=== PATIENT | female | born 1955 | race Caucasian/White ===

== ENCOUNTER → 2020-02-04 | Outpatient (REF) | payer MEDICARE ==
[2020-02-04 18:57] LABS: APPEARANCE, URINE HAZY (CLEAR); BACTERIA, URINE AUTO 1+ (NEGATIVE); BILIRUBIN, URINE AUTO NEGATIVE (NEGATIVE); BLOOD, URINE BLOOD NEGATIVE (NEGATIVE); COLOR, URINE YELLOW (YELLOW); GLUCOSE, URINE (UA) AUTO NEGATIVE (NEGATIVE); KETONE, URINE AUTO NEGATIVE (NEGATIVE); LEUKOCYTE ESTERASE, URINE AUTO 3+ (NEGATIVE); MUCUS, URINE SMALL (NEGATIVE); NITRITE, URINE AUTO NEGATIVE (NEGATIVE); PROTEIN, URINE AUTO NEGATIVE (NEGATIVE); RBC, URINE AUTO 4 /HPF (0-3); SPECIFIC GRAVITY URINE AUTO 1.019 (1.002-1.035); SQUAMOUS EPITHELIAL CELL UR AU 1 /HPF (0-6); UROBILINOGEN, URINE AUTO 0.2 mg/dL (0.0-2.0); WBC, URINE AUTO 150 /HPF (0-3)
== END ==
LOC: M SMT 16:46
PROVIDERS: ATTEND Nurse Practitioner Women's Health
DX: N39.0 Urinary tract infection, site not specified (principal)

== ENCOUNTER 2020-03-31 07:30 | Day surgery (SDC) | payer MEDICARE ==
[~2020-03-31 07:30] MED LIST: LIDOCAINE 2% 100MG/5ML SDV (FOR ANES.) As Ordered ONE; MIDAZOLAM INJ 2MG/2ML VIAL (J2250 PER 1MG) As Ordered ONE; ceFAZolin 1GM VIAL (J0690 PER 500MG) As Ordered ONE; fentaNYL 100 MCG/2 ML INJECTION (J3010) As Ordered ONE; propofoL 200 MG/20 ML VIAL As Ordered ONE
[2020-03-31] MEDS ORDERED: ONDANSETRON 4MG/2ML VIAL As Ordered ONE ×2 (08:06→11:07)
[2020-03-31] MEDS ORDERED: dexameTHASONE 4 MG/ML 1ML VIAL (J1100 PER 1MG) As Ordered ONE (11:07)
[2020-03-31] MEDS ORDERED: propofoL 200 MG/20 ML VIAL As Ordered ONE (11:07)
[2020-03-31] MEDS ORDERED: fentaNYL 100 MCG/2 ML INJECTION (J3010) As Ordered ONE (11:08)
[2020-03-31] MEDS ORDERED: BUPIVACAINE HCL 0.25% 10ML VIAL As Ordered ONE (11:35)
[2020-03-31] MEDS ORDERED: LIDOCAINE W/EPINEPHRINE 1% 20ML VIAL As Ordered ONE (11:35)
[2020-03-31] MEDS ORDERED: ACETAMINOPHEN 120 MG SUPP As Ordered ONE (11:41)
[2020-03-31] MEDS ORDERED: IBUPROFEN 100 MG/5 ML SUSP UDC DYE FREE As Ordered ONE (12:50)
--- NOTE | 2020-05-05 15:35 | ECGEPIP ---
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
--- NOTE | 2020-05-12 11:48 | REP ---
HISTORY: Unavailable. FINDINGS: There are clips in the right upper quadrant of the abdomen and in the left mid abdomen and in the left mid abdomen. Some vascular calcifications are noted in the aorta and iliac vessels. The bowel gas pattern is normal. There is a 9 mm calcification projecting over the right mid-kidney consistent with an intrarenal calculus. There are phleboliths in the pelvis. IMPRESSION: Intrarenal nephrolithiasis, right kidney, MTDD
--- NOTE | 2020-05-26 10:15 | RO ---
DATE OF OPERATION: March 30, 2020 PRE-PROCEDURE DIAGNOSIS: Right kidney stone. POST-PROCEDURE DIAGNOSIS: Right kidney stone. PROCEDURES: Right extracorporeal shock wave lithotripsy. SURGEON: Young Quintana MD. COMMERCIAL PLUMBER: None. ANESTHESIA: MAC. OPERATIVE INDICATIONS: This is a 65-year-old female who was brought to the operating room for treatment of a 7-mm nonobstructing right kidney stone. DESCRIPTION OF PROCEDURE: The patient was brought to the operating room and MAC anesthesia was administered. Prophylactic antibiotics were infused. She was then placed in the supine position in preparation for a right-sided extracorporeal shock wave lithotripsy. Fluoroscopy was utilized to monitor the stone position and fragmentation of the procedure. Shock waves were then delivered to the right-sided kidney stone ungated. There were no arrhythmias. The stone did appear to fragment well. After 2500 shocks, the procedure was concluded. The patient was then awakened from anesthesia and transferred to the recovery room in stable condition. ESTIMATED BLOOD LOSS: 0 mL. COMPLICATIONS: None. SPECIMEN: None. PLAN: The patient will follow up in the urology clinic in approximately 3-4 weeks with imaging prior to assess for residual stone burden. RUDY
== END 2020-03-31 09:45 | disposition home or self-care (01) ==
LOC: M SDC 07:30
PROVIDERS: ATTEND Urology
DX: N20.0 Calculus of kidney (principal); J44.9 Chronic obstructive pulmonary disease, unspecified; F32.9 Major depressive disorder, single episode, unspecified; I10 Essential (primary) hypertension; E78.5 Hyperlipidemia, unspecified; Z79.899 Other long term (current) drug therapy; Z87.891 Personal history of nicotine dependence
CPT/HCPCS: 50590; 74018; 93005; J0690; J1100; J2250; J2405; J3010

== ENCOUNTER → 2020-05-02 | Outpatient (REF) | payer MEDICARE ==
[2020-05-11 18:07] LABS: CA Oxalate Dihy 10 % (.); Ca Ox Monohydrate 60 % (.)
== END ==
LOC: M SMT 13:24
PROVIDERS: ATTEND Nurse Practitioner Women's Health
DX: N20.0 Calculus of kidney (principal)

== ENCOUNTER 2021-08-30 09:01 | Day surgery (SDC) | payer MEDICARE ==
[~2021-08-30] VITALS: Ht 170.2 cm; Wt 90.4 kg
[~2021-08-30 09:01] MED LIST changes: +ALBUTEROL SULFATE 2.5 MG/0.5 ML INH NEB SOLN INH ONE; +D31000TA2 PO; -LIDOCAINE 2% 100MG/5ML SDV (FOR ANES.) As Ordered ONE; +LIDOCAINE 4% INJ 5ML AMP INH ONE; +LISI20TA35 PO; +LR 1,000 ML IV ONE; +METH10TA PO; -MIDAZOLAM INJ 2MG/2ML VIAL (J2250 PER 1MG) As Ordered ONE; +PARO5TAB PO; +PROP60CA PO; +SPIR12.9 INH; -ceFAZolin 1GM VIAL (J0690 PER 500MG) As Ordered ONE; -fentaNYL 100 MCG/2 ML INJECTION (J3010) As Ordered ONE; -propofoL 200 MG/20 ML VIAL As Ordered ONE
[2021-08-30] MEDS ORDERED: fentaNYL 100 MCG/2 ML INJECTION (J3010) As Ordered ONE (10:22)
[2021-08-30] MEDS ORDERED: MIDAZOLAM INJ 2MG/2ML VIAL (J2250 PER 1MG) As Ordered ONE (10:22)
[2021-08-30] MEDS ORDERED: ROCURONIUM BROMIDE 50 MG/5 ML VIAL As Ordered ONE (10:24)
[2021-08-30] MEDS ORDERED: propofoL 200 MG/20 ML VIAL As Ordered ONE (10:24)
[2021-08-30] MEDS ORDERED: ONDANSETRON 4MG/2ML VIAL As Ordered ONE (10:25)
[2021-08-30] MEDS ORDERED: dexameTHASONE 4 MG/ML 1ML VIAL (J1100 PER 1MG) As Ordered ONE (10:25)
[2021-08-30] MEDS ORDERED: LIDOCAINE 2% 100MG/5ML SDV (FOR ANES.) As Ordered ONE (10:25)
[2021-08-30] MEDS ORDERED: LIDOCAINE 1% SDV 30ML VIAL As Ordered ONE (11:19)
[2021-08-30] MEDS ORDERED: THROMBIN SOLN 5,000 UNITS VIAL As Ordered ONE (11:20)
[2021-08-30] MEDS ORDERED: CETACAINE SPRAY 5GM As Ordered ONE (11:20)
[2021-08-30] MEDS ORDERED: EPINEPHrine 1MG/10ML SYRINGE 1.5IN As Ordered ONE (11:20)
[2021-08-30] MEDS ORDERED: SUGAMMADEX SODIUM 500 MG/5 ML VIAL (BRIDION) As Ordered ONE (12:07)
[2021-08-30] MEDS ORDERED: ePHEDrine SULFATE 25 MG/5 ML(5MG/ML) SYRINGE As Ordered ONE (12:13)
[2021-08-30] MEDS ORDERED: METOCLOPRAMIDE INJ 10MG/2ML VIAL (J2765 PER 1) As Ordered ONE (13:39)
[2021-08-30 13:45] VITALS: BP 157/70
[2021-08-30] MEDS ORDERED: ONDANSETRON 4MG/2ML VIAL IV PRN (14:00)
[2021-08-30] MEDS ORDERED: LR 1,000 ML IV SCH (14:00)
[2021-08-30] MEDS ORDERED: fentaNYL 100 MCG/2 ML INJECTION (J3010) IV PRN (14:00)
[2021-08-30] MEDS ORDERED: METOCLOPRAMIDE INJ 10MG/2ML VIAL (J2765 PER 1) IV PRN (14:00)
[2021-08-30] MEDS ORDERED: ACETAMINOPHEN TAB 650MG DOSE (2X325MG) PO PRN (14:00)
== END 2021-08-30 14:25 | disposition home or self-care (01) ==
LOC: M SDC 09:01
PROVIDERS: ATTEND Internal Medicine Pulmonary Disease
DX: C7A.090 Malignant carcinoid tumor of the bronchus and lung (principal); C77.1 Secondary and unspecified malignant neoplasm of intrathoracic lymph nodes; I10 Essential (primary) hypertension; E78.5 Hyperlipidemia, unspecified; K44.9 Diaphragmatic hernia without obstruction or gangrene; E05.80 Other thyrotoxicosis without thyrotoxic crisis or storm; J44.9 Chronic obstructive pulmonary disease, unspecified; Z87.891 Personal history of nicotine dependence; F41.9 Anxiety disorder, unspecified; F32.9 Major depressive disorder, single episode, unspecified; M79.7 Fibromyalgia; Z91.041 Radiographic dye allergy status; Z88.8 Allergy status to other drugs, medicaments and biological substances; Z79.899 Other long term (current) drug therapy
CPT/HCPCS: 31626; 31627; 31628; 31629; 31654; 71045; 76000; 88173; 88305; A4648; J1100; J2250; J2405; J2765; J3010; S2900

== ENCOUNTER → 2021-09-19 | Outpatient (CLI) | payer MEDICARE ==
[~2021-09-19] MED LIST changes: -ALBUTEROL SULFATE 2.5 MG/0.5 ML INH NEB SOLN INH ONE; -LIDOCAINE 4% INJ 5ML AMP INH ONE; +LORA1TAB4 PO; -LR 1,000 ML IV ONE; +OLAN1TAB16 PO
== END ==
LOC: M PLARAD 08:52
PROVIDERS: ATTEND Internal Medicine Pulmonary Disease
DX: C34.11 Malignant neoplasm of upper lobe, right bronchus or lung (principal); I65.23 Occlusion and stenosis of bilateral carotid arteries; I70.0 Atherosclerosis of aorta; I25.10 Atherosclerotic heart disease of native coronary artery without angina pectoris; R59.0 Localized enlarged lymph nodes; E07.9 Disorder of thyroid, unspecified
CPT/HCPCS: 78815; A9552

== ENCOUNTER → 2021-09-20 | Outpatient (CLI) | payer MEDICARE ==
[~2021-09-20] MED LIST changes: +ASPI81CH33 PO; -D31000TA2 PO; +DEXA4TA PO; +ECOT81TA5 PO; +LASI20TA3 PO; +MAGN400C PO; +METH25TAB PO; +ONDA-84 PO; +PANT40TA29 PO; +POTA1TAB14 PO; +PROC10TA5 PO; +SIMV20TA22; +VITA100093 PO; +[UNRECOGNIZED DRUG - OTHER]
== END ==
LOC: M ONCR 10:36
PROVIDERS: ATTEND General Practice
DX: C34.11 Malignant neoplasm of upper lobe, right bronchus or lung (principal); Z87.891 Personal history of nicotine dependence; Z86.16 Personal history of COVID-19; Z91.041 Radiographic dye allergy status; Z79.899 Other long term (current) drug therapy

== ENCOUNTER → 2021-10-02 | Outpatient (CLI) | payer MEDICARE ==
[~2021-10-02] MED LIST changes: -ASPI81CH33 PO; -DEXA4TA PO; -ECOT81TA5 PO; -LASI20TA3 PO; -MAGN400C PO; -PANT40TA29 PO; -POTA1TAB14 PO; -SIMV20TA22; -[UNRECOGNIZED DRUG - OTHER]
== END ==
LOC: M ONCR 10:05
PROVIDERS: ATTEND General Practice
DX: C34.11 Malignant neoplasm of upper lobe, right bronchus or lung (principal); C77.1 Secondary and unspecified malignant neoplasm of intrathoracic lymph nodes

== ENCOUNTER → 2021-11-16 | Outpatient (RCR) | payer MEDICARE ==
[2021-10-23 15:00] VITALS: BP 118/72
[2021-10-23 15:08] VITALS: BP 124/78
[~2021-11-16] MED LIST changes: +ASPI81CH33 PO; +DEXA4TA PO; +ECOT81TA5 PO; +LASI20TA3 PO; +LORazepam 2 MG/ML VIAL IVP ONE; +MAGN400C PO; +POTA1TAB14 PO; +SIMV20TA22; +SODIUM CHLORIDE 0.9% INJ 10 ML SYR IV PRN; +[UNRECOGNIZED DRUG - OTHER]
== END ==
LOC: M ONCR 10-23 10:46
PROVIDERS: ATTEND General Practice
DX: C34.11 Malignant neoplasm of upper lobe, right bronchus or lung (principal)
CPT/HCPCS: 77293; 77300; 77301; 77334; 77336; 77338; 77386; 77470; J2060

== ENCOUNTER 2021-12-15 13:44 | Outpatient (RCR) | payer MEDICARE ==
[2021-10-23 15:08] VITALS: BP 124/78
[~2021-12-15 13:44] MED LIST changes: -LORazepam 2 MG/ML VIAL IVP ONE; +PANT40TA29 PO; -SODIUM CHLORIDE 0.9% INJ 10 ML SYR IV PRN
== END 2021-12-16 ==
LOC: M ONCR 13:44
PROVIDERS: ATTEND General Practice
DX: C34.11 Malignant neoplasm of upper lobe, right bronchus or lung (principal)

== ENCOUNTER 2022-01-10 13:28 | Outpatient (RCR) | payer MEDICARE ==
[2021-10-23 15:08] VITALS: BP 124/78
== END 2022-01-16 ==
LOC: M ONCR 13:28
PROVIDERS: ATTEND General Practice
DX: C34.11 Malignant neoplasm of upper lobe, right bronchus or lung (principal)

== ENCOUNTER 2022-01-23 09:14 | Outpatient (CLI) | payer MEDICARE ==
[2022-01-23] MEDS ORDERED: PROHANCE 279.3MG/ML 15ML VIAL As Ordered ONE (10:05)
[2022-01-23] MEDS ORDERED: PROHANCE 279.3MG/ML 5ML VIAL As Ordered ONE (10:06)
[2022-01-23 10:32] LABS: ALBUMIN 3.5 GM/DL (3.2-5.2); ALT/SGPT 25 U/L (12-78); BILIRUBIN,TOTAL 0.5 MG/DL (0.2-1.0); BLOOD UREA NITROGEN 20 MG/DL (7-18); CALCIUM LEVEL 9.3 MG/DL (8.8-10.2); CARBON DIOXIDE LEVEL 31 MEQ/L (21-32); CHLORIDE LEVEL 106 MEQ/L (98-107); CREATININE FOR GFR 0.86 MG/DL (0.55-1.30); GLOMERULAR FILTRATION RATE > 60.0 (>45); GLUCOSE, FASTING 128 MG/DL (70-100); POTASSIUM SERUM 4.1 MEQ/L (3.5-5.1); SODIUM LEVEL 139 MEQ/L (136-145); TOTAL PROTEIN 7.4 GM/DL (6.4-8.2)
[2022-01-23] MEDS ORDERED: POTA1TAB14 PO (11:19)
[2022-01-23] MEDS ORDERED: FURO20TA2 PO (11:19)
[2022-01-23 12:00] VITALS: BP 162/90
== END 2022-01-23 12:03 | disposition home or self-care (01) ==
LOC: M LAB 09:14
PROVIDERS: ATTEND General Practice
DX: C34.11 Malignant neoplasm of upper lobe, right bronchus or lung (principal); R90.82 White matter disease, unspecified; I63.81 Other cerebral infarction due to occlusion or stenosis of small artery
CPT/HCPCS: 36415; 70553; 80053; A9576

== ENCOUNTER → 2022-01-26 | Outpatient (CLI) | payer MEDICARE ==
[~2022-01-26] MED LIST changes: +FURO20TA2 PO; +MEMA10TA19 PO; +MEMA1TAB3 PO
== END ==
LOC: M ONCR 13:26
PROVIDERS: ATTEND General Practice
DX: C34.11 Malignant neoplasm of upper lobe, right bronchus or lung (principal); I25.2 Old myocardial infarction; F40.240 Claustrophobia; R53.83 Other fatigue; Z79.82 Long term (current) use of aspirin; Z79.899 Other long term (current) drug therapy; Z86.19 Personal history of other infectious and parasitic diseases; Z87.891 Personal history of nicotine dependence; Z88.8 Allergy status to other drugs, medicaments and biological substances; Z92.21 Personal history of antineoplastic chemotherapy; Z92.3 Personal history of irradiation

== ENCOUNTER 2022-02-07 09:19 | Outpatient (RCR) | payer MEDICARE ==
[2022-02-12] MEDS ORDERED: CLON0.5T17 PO (19:11)
[2022-02-12] MEDS ORDERED: CLON0.5T2 PO (19:11)
== END 2022-02-15 ==
LOC: M ONCR 09:19
PROVIDERS: ATTEND General Practice
DX: Z51.0 Encounter for antineoplastic radiation therapy (principal); C34.11 Malignant neoplasm of upper lobe, right bronchus or lung; J44.9 Chronic obstructive pulmonary disease, unspecified; I10 Essential (primary) hypertension; E78.5 Hyperlipidemia, unspecified; E05.00 Thyrotoxicosis with diffuse goiter without thyrotoxic crisis or storm; M79.7 Fibromyalgia; F32.A Depression, unspecified; F40.240 Claustrophobia; Z79.899 Other long term (current) drug therapy; Z79.82 Long term (current) use of aspirin; Z88.8 Allergy status to other drugs, medicaments and biological substances; Z87.891 Personal history of nicotine dependence; Z87.19 Personal history of other diseases of the digestive system; Z82.49 Family history of ischemic heart disease and other diseases of the circulatory system; Z80.9 Family history of malignant neoplasm, unspecified

== ENCOUNTER → 2022-03-05 | Outpatient (CLI) | payer MEDICARE ==
[~2022-03-05] MED LIST changes: +CLON0.5T17 PO; +CLON0.5T2 PO; +DEXA2TA PO
== END ==
LOC: M PLARAD 11:53
PROVIDERS: ATTEND Internal Medicine Medical Oncology
DX: C34.2 Malignant neoplasm of middle lobe, bronchus or lung (principal); I65.23 Occlusion and stenosis of bilateral carotid arteries; I70.0 Atherosclerosis of aorta; I25.10 Atherosclerotic heart disease of native coronary artery without angina pectoris; K44.9 Diaphragmatic hernia without obstruction or gangrene; Z90.49 Acquired absence of other specified parts of digestive tract; D35.02 Benign neoplasm of left adrenal gland; J98.4 Other disorders of lung
CPT/HCPCS: 78815; A9552

== ENCOUNTER 2022-03-06 14:18 | Outpatient (RCR) | payer MEDICARE | END 2022-03-18 | LOC: M ONCR 14:18 | PROVIDERS: ATTEND General Practice | DX: Z51.0 Encounter for antineoplastic radiation therapy (principal); C34.11 Malignant neoplasm of upper lobe, right bronchus or lung ==

== ENCOUNTER → 2022-05-03 | Outpatient (CLI) | payer MEDICARE ==
[~2022-05-03] MED LIST changes: +ISOVUE-300 61% 50ML VIAL As Ordered ONE; -SIMV20TA22; +SIMV20TA22 PO
== END ==
LOC: M RAD 14:31
PROVIDERS: ATTEND Nurse Practitioner
DX: C34.2 Malignant neoplasm of middle lobe, bronchus or lung (principal); R51.9 Headache, unspecified

== ENCOUNTER 2022-05-06 16:19 | Inpatient (IN) | payer MEDICARE ==
[~2022-05-06] VITALS: Ht 170.2 cm; Wt 90.3 kg
[~2022-05-06 16:19] MED LIST changes: -ISOVUE-300 61% 50ML VIAL As Ordered ONE
[2022-05-06] MEDS ORDERED: LORazepam 0.5 MG TAB PO ONE (16:55)
[2022-05-06 17:22] LABS: BASO % 0.1 % (0.0-1.0); EOS # 0.1 10^3/uL (0.0-0.5); EOS % 1.9 % (0.0-3.0); HEMATOCRIT 38.4 % (36.0-47.0); HEMOGLOBIN 12.8 g/dl (12.0-15.5); LYMPH # 0.5 10^3/uL (1.5-5.0); MEAN CORPUSCULAR HEMOGLOBIN 30.8 pg (27.0-33.0); MEAN CORPUSCULAR HGB CONC 33.3 g/dl (32.0-36.5); MEAN CORPUSCULAR VOLUME 92.3 fl (80.0-96.0); MONO # 0.7 10^3/uL (0.0-0.8); MONO % 9.9 % (2.0-8.0); NEUTROPHILS # 5.6 10^3/uL (1.5-8.5); NEUTROPHILS % 80.8 % (36.0-66.0); PLATELET COUNT, AUTOMATED 232 10^3/uL (150-450); RED BLOOD COUNT 4.16 10^6/uL (4.00-5.40); WHITE BLOOD COUNT 6.9 10^3/uL (4.0-10.0)
[2022-05-06] MEDS ORDERED: NS 500 ML IV ONE (17:45)
[2022-05-06 17:51] LABS: CK-MB VALUE MASS < 1.0 NG/ML (<3.6); CPK CREATINE PHOSPHOKINASE 43 U/L (26-192); MB/CK RELATIVE INDEX 2.33 (< OR =4)
[2022-05-06 18:24] LABS: ALBUMIN 3.7 GM/DL (3.2-5.2); ALT/SGPT 13 U/L (12-78); BILIRUBIN,DIRECT 0.3 MG/DL (0.0-0.2); BILIRUBIN,TOTAL 0.9 MG/DL (0.2-1.0); BLOOD UREA NITROGEN 11 MG/DL (7-18); CALCIUM LEVEL 9.4 MG/DL (8.8-10.2); CARBON DIOXIDE LEVEL 27 MEQ/L (21-32); CHLORIDE LEVEL 102 MEQ/L (98-107); CREATININE FOR GFR 0.88 MG/DL (0.55-1.30); FREE T4 0.97 NG/DL (0.76-1.46); GLOMERULAR FILTRATION RATE > 60.0 (>45); GLUCOSE, FASTING 137 MG/DL (70-100); LIPASE 77 U/L (73-393); MAGNESIUM LEVEL 1.7 MG/DL (1.8-2.4); PHOSPHORUS LEVEL 3.4 MG/DL (2.5-4.9); POTASSIUM SERUM 3.7 MEQ/L (3.5-5.1); SODIUM LEVEL 135 MEQ/L (136-145); TOTAL PROTEIN 6.9 GM/DL (6.4-8.2)
[2022-05-06] MEDS ORDERED: MAGNESIUM OXIDE 400MG TAB (MAG-OX) PO ONE (18:45)
[2022-05-06 18:52] LABS: CK-MB VALUE MASS < 1.0 NG/ML (<3.6); CPK CREATINE PHOSPHOKINASE 39 U/L (26-192); MB/CK RELATIVE INDEX 2.56 (< OR =4)
[2022-05-06] MEDS ORDERED: HOME MED LIST COMPLETE! XX SCH (19:20)
[2022-05-06] MEDS ORDERED: ACETAMINOPHEN TAB 650MG DOSE (2X325MG) PO PRN (20:20)
[2022-05-06] MEDS ORDERED: MOM 30ML SUSPENSION UDC PO PRN (20:20)
[2022-05-06] MEDS: DOCUSATE SODIUM 100MG CAPSULE PO SCH (21:19)
[2022-05-06] MEDS: PROPRANOLOL 60 MG LA CAP PO SCH (21:19)
[2022-05-06] MEDS: SIMVASTATIN 20 MG TAB PO SCH (21:19)
[2022-05-06 22:25] VITALS: BP 146/95
[2022-05-06] MEDS: NS 1,000 ML IV SCH (22:50)
[2022-05-07] MEDS: HEPARIN SOD (PORCINE) 5000UNITS/ML 1ML VIAL/SYRINGE SC SCH ×3 (05:46→21:59)
[2022-05-07 06:08] LABS: HEMATOCRIT 35.3 % (36.0-47.0); HEMOGLOBIN 11.7 g/dl (12.0-15.5); MEAN CORPUSCULAR HEMOGLOBIN 30.5 pg (27.0-33.0); MEAN CORPUSCULAR HGB CONC 33.1 g/dl (32.0-36.5); MEAN CORPUSCULAR VOLUME 91.9 fl (80.0-96.0); PLATELET COUNT, AUTOMATED 213 10^3/uL (150-450); RED BLOOD COUNT 3.84 10^6/uL (4.00-5.40); WHITE BLOOD COUNT 5.9 10^3/uL (4.0-10.0)
[2022-05-07 06:23] VITALS: BP 152/82
[2022-05-07 06:38] LABS: ALBUMIN 3.3 GM/DL (3.2-5.2); ALT/SGPT 11 U/L (12-78); BILIRUBIN,TOTAL 0.8 MG/DL (0.2-1.0); BLOOD UREA NITROGEN 10 MG/DL (7-18); CALCIUM LEVEL 8.8 MG/DL (8.8-10.2); CARBON DIOXIDE LEVEL 26 MEQ/L (21-32); CHLORIDE LEVEL 105 MEQ/L (98-107); GLOMERULAR FILTRATION RATE > 60.0 (>45); GLUCOSE, FASTING 103 MG/DL (70-100); MAGNESIUM LEVEL 1.7 MG/DL (1.8-2.4); POTASSIUM SERUM 3.8 MEQ/L (3.5-5.1); SODIUM LEVEL 138 MEQ/L (136-145); TOTAL PROTEIN 5.8 GM/DL (6.4-8.2)
[2022-05-07] MEDS ORDERED: PARoxetine 10MG TABLET PO SCH (09:00)
[2022-05-07] MEDS ORDERED: MAG SULF 1GM/100ML (MAG RUN) 1 GM in IV 1 EA IV ONE (09:00)
[2022-05-07] MEDS: DOCUSATE SODIUM 100MG CAPSULE PO SCH ×3 (09:00→20:39)
[2022-05-07] MEDS: ASPIRIN 81MG ENTERIC TABLET PO SCH (09:14)
[2022-05-07] MEDS: PANTOPRAZOLE 40MG TAB (PROTONIX) PO SCH (09:15)
[2022-05-07] MEDS: NS 1,000 ML IV SCH (13:03)
[2022-05-07] MEDS: ONDANSETRON 4MG TAB PO SCH ×2 (13:03→17:32)
[2022-05-07 14:00] VITALS: BP 150/78
[2022-05-07] MEDS: TIOTROPIUM INHALER/CAPSULE (SPIRIVA) INH SCH (15:01)
[2022-05-07] MEDS: SIMVASTATIN 20 MG TAB PO SCH (20:38)
[2022-05-07 20:39] VITALS: BP 149/75
[2022-05-07] MEDS: PROPRANOLOL 60 MG LA CAP PO SCH (20:39)
[2022-05-07] MEDS ORDERED: MIRTAZAPINE 15 MG TAB PO SCH (21:00)
[2022-05-07] MEDS ORDERED: SERTRALINE HCL 50 MG TAB PO SCH (21:00)
[2022-05-07 22:00] VITALS: BP 149/76
[2022-05-08 05:56] LABS: HEMATOCRIT 33.4 % (36.0-47.0); HEMOGLOBIN 10.8 g/dl (12.0-15.5); MEAN CORPUSCULAR HEMOGLOBIN 30.3 pg (27.0-33.0); MEAN CORPUSCULAR HGB CONC 32.3 g/dl (32.0-36.5); MEAN CORPUSCULAR VOLUME 93.8 fl (80.0-96.0); PLATELET COUNT, AUTOMATED 208 10^3/uL (150-450); RED BLOOD COUNT 3.56 10^6/uL (4.00-5.40); WHITE BLOOD COUNT 4.8 10^3/uL (4.0-10.0)
[2022-05-08 06:00] VITALS: BP 121/55
[2022-05-08] MEDS: ONDANSETRON 4MG TAB PO SCH ×3 (06:02→12:37)
[2022-05-08] MEDS: HEPARIN SOD (PORCINE) 5000UNITS/ML 1ML VIAL/SYRINGE SC SCH ×2 (06:02→14:57)
[2022-05-08 06:42] LABS: BLOOD UREA NITROGEN 8 MG/DL (7-18); CALCIUM LEVEL 8.7 MG/DL (8.8-10.2); CARBON DIOXIDE LEVEL 25 MEQ/L (21-32); CHLORIDE LEVEL 109 MEQ/L (98-107); CREATININE FOR GFR 0.72 MG/DL (0.55-1.30); GLOMERULAR FILTRATION RATE > 60.0 (>45); GLUCOSE, FASTING 106 MG/DL (70-100); POTASSIUM SERUM 3.8 MEQ/L (3.5-5.1); SODIUM LEVEL 141 MEQ/L (136-145)
[2022-05-08] MEDS: TIOTROPIUM INHALER/CAPSULE (SPIRIVA) INH SCH (07:18)
[2022-05-08] MEDS: PANTOPRAZOLE 40MG TAB (PROTONIX) PO SCH (08:29)
[2022-05-08] MEDS: DOCUSATE SODIUM 100MG CAPSULE PO SCH ×2 (08:29→08:30)
[2022-05-08] MEDS: ASPIRIN 81MG ENTERIC TABLET PO SCH (08:29)
[2022-05-08] MEDS ORDERED: SERT50TA29 PO (11:58)
[2022-05-08] MEDS ORDERED: MIRT-10 PO (11:58)
== END 2022-05-08 16:20 | disposition home or self-care (01) | DRG 312 ==
LOC: M ED 16:19 → M ED INP 20:17 → M MS5PR 22:25
PROVIDERS: ADMIT Family Medicine; ATTEND Family Medicine
DX: I95.1 Orthostatic hypotension (principal); C34.90 Malignant neoplasm of unspecified part of unspecified bronchus or lung; I10 Essential (primary) hypertension; I25.10 Atherosclerotic heart disease of native coronary artery without angina pectoris; E83.42 Hypomagnesemia; F41.9 Anxiety disorder, unspecified; J44.9 Chronic obstructive pulmonary disease, unspecified; F32.A Depression, unspecified; K21.9 Gastro-esophageal reflux disease without esophagitis; Z87.891 Personal history of nicotine dependence; Z92.21 Personal history of antineoplastic chemotherapy; Z79.82 Long term (current) use of aspirin; Z79.899 Other long term (current) drug therapy; Z88.8 Allergy status to other drugs, medicaments and biological substances; Z20.822 Contact with and (suspected) exposure to COVID-19; Z97.8 Presence of other specified devices; Z92.3 Personal history of irradiation

== ENCOUNTER → 2022-06-11 | Outpatient (CLI) | payer MEDICARE ==
[~2022-06-11] MED LIST changes: +MIRT-10 PO; +SERT50TA29 PO
== END ==
LOC: M PLARAD 08:45
PROVIDERS: ATTEND Nurse Practitioner
DX: C34.2 Malignant neoplasm of middle lobe, bronchus or lung (principal)
CPT/HCPCS: 78815; A9552

== ENCOUNTER → 2022-06-21 | Outpatient (CLI) | payer MEDICARE | LOC: M ONCR 13:02 | PROVIDERS: ATTEND General Practice | DX: C34.11 Malignant neoplasm of upper lobe, right bronchus or lung (principal); R53.83 Other fatigue; Z87.891 Personal history of nicotine dependence; Z92.21 Personal history of antineoplastic chemotherapy; Z88.8 Allergy status to other drugs, medicaments and biological substances; Z79.899 Other long term (current) drug therapy; Z92.3 Personal history of irradiation ==

== ENCOUNTER → 2022-07-10 | Outpatient (CLI) | payer MEDICARE | LOC: M PLAIMG 12:55 | PROVIDERS: ATTEND Internal Medicine Pulmonary Disease | DX: C34.11 Malignant neoplasm of upper lobe, right bronchus or lung (principal); C77.1 Secondary and unspecified malignant neoplasm of intrathoracic lymph nodes; R91.8 Other nonspecific abnormal finding of lung field; I31.39 Other pericardial effusion (noninflammatory); I70.0 Atherosclerosis of aorta; I25.10 Atherosclerotic heart disease of native coronary artery without angina pectoris; K44.9 Diaphragmatic hernia without obstruction or gangrene; J47.9 Bronchiectasis, uncomplicated; Z92.3 Personal history of irradiation ==

== ENCOUNTER → 2022-07-19 | Outpatient (CLI) | payer MEDICARE | LOC: M ONCR 12:16 | PROVIDERS: ATTEND General Practice | DX: C34.11 Malignant neoplasm of upper lobe, right bronchus or lung (principal); Z79.82 Long term (current) use of aspirin; Z79.899 Other long term (current) drug therapy; Z86.16 Personal history of COVID-19; Z87.891 Personal history of nicotine dependence; Z88.8 Allergy status to other drugs, medicaments and biological substances; Z92.21 Personal history of antineoplastic chemotherapy; Z92.3 Personal history of irradiation ==

== ENCOUNTER → 2022-10-17 | Outpatient (CLI) | payer MEDICARE | LOC: M ONCR 14:18 | PROVIDERS: ATTEND General Practice | DX: C34.11 Malignant neoplasm of upper lobe, right bronchus or lung (principal); Z87.891 Personal history of nicotine dependence; Z88.8 Allergy status to other drugs, medicaments and biological substances; Z79.82 Long term (current) use of aspirin; Z79.899 Other long term (current) drug therapy; Z92.21 Personal history of antineoplastic chemotherapy; Z92.3 Personal history of irradiation ==

== ENCOUNTER → 2023-03-19 | Outpatient (CLI) | payer MEDICARE ==
[~2023-03-19] MED LIST changes: +LORA1TAB23 PO; -LORA1TAB4 PO; +POTA-298 PO; -POTA1TAB14 PO
== END ==
LOC: M ONCR 13:42
PROVIDERS: ATTEND Radiology Radiation Oncology
DX: C34.11 Malignant neoplasm of upper lobe, right bronchus or lung (principal); Z71.2 Person consulting for explanation of examination or test findings; Z79.82 Long term (current) use of aspirin; Z79.899 Other long term (current) drug therapy; Z87.891 Personal history of nicotine dependence; Z88.8 Allergy status to other drugs, medicaments and biological substances; Z92.21 Personal history of antineoplastic chemotherapy; Z92.3 Personal history of irradiation

== ENCOUNTER → 2023-03-19 | Outpatient (CLI) | payer MEDICARE ==
[~2023-03-19] MED LIST changes: +PROHANCE 279.3MG/ML 15ML VIAL As Ordered ONE; +PROHANCE 279.3MG/ML 5ML VIAL As Ordered ONE; +ePHEDrine SULFATE 25 MG/5 ML(5MG/ML) SYRINGE ONE
[2023-03-19 09:20] VITALS: TEMP 97.1
[2023-03-19 11:40] VITALS: BP 164/68; O2SAT 95
== END ==
LOC: M RAD 09:01
PROVIDERS: ATTEND General Practice
DX: Z51.0 Encounter for antineoplastic radiation therapy (principal); C34.11 Malignant neoplasm of upper lobe, right bronchus or lung; G93.89 Other specified disorders of brain
CPT/HCPCS: 70553; A9576; G0463

== ENCOUNTER → 2023-07-19 | Outpatient (CLI) | payer MEDICARE ==
[~2023-07-19] MED LIST changes: -PROHANCE 279.3MG/ML 15ML VIAL As Ordered ONE; -PROHANCE 279.3MG/ML 5ML VIAL As Ordered ONE; -ePHEDrine SULFATE 25 MG/5 ML(5MG/ML) SYRINGE ONE
== END ==
LOC: M ONCR 13:57
PROVIDERS: ATTEND General Practice
DX: C34.11 Malignant neoplasm of upper lobe, right bronchus or lung (principal); Z71.2 Person consulting for explanation of examination or test findings; Z79.82 Long term (current) use of aspirin; Z86.16 Personal history of COVID-19; Z79.899 Other long term (current) drug therapy; Z87.891 Personal history of nicotine dependence; Z88.8 Allergy status to other drugs, medicaments and biological substances; Z92.21 Personal history of antineoplastic chemotherapy; Z92.3 Personal history of irradiation

== ENCOUNTER → 2024-01-23 | Outpatient (CLI) | payer MEDICARE ==
[~2024-01-23] MED LIST changes: +MEMA10TA PO; -MEMA10TA19 PO
== END ==
LOC: M ONCR 14:10
PROVIDERS: ATTEND General Practice
DX: C34.11 Malignant neoplasm of upper lobe, right bronchus or lung (principal); R91.8 Other nonspecific abnormal finding of lung field; M19.90 Unspecified osteoarthritis, unspecified site; R63.5 Abnormal weight gain; Z71.2 Person consulting for explanation of examination or test findings; Z87.891 Personal history of nicotine dependence; Z92.21 Personal history of antineoplastic chemotherapy; Z92.3 Personal history of irradiation; Z86.16 Personal history of COVID-19; Z88.8 Allergy status to other drugs, medicaments and biological substances; Z79.82 Long term (current) use of aspirin; Z79.899 Other long term (current) drug therapy

== ENCOUNTER 2024-05-27 17:09 | Inpatient (IN) | payer MEDICARE ==
[~2024-05-27] VITALS: Ht 170.2 cm; Wt 90.9 kg
[2024-05-27] MEDS ORDERED: PROP60TA14 PO (17:27)
[2024-05-27] MEDS ORDERED: VENTAER INH (17:27)
[2024-05-27 18:38] LABS: BASO % 0.2 % (0.0-1.0); EOS # 0.1 10^3/uL (0.0-0.5); EOS % 0.9 % (0.0-3.0); HEMATOCRIT 42.4 % (36.0-47.0); HEMOGLOBIN 13.8 g/dl (12.0-15.5); LYMPH # 0.9 10^3/uL (1.5-5.0); LYMPH % 10.1 % (24.0-44.0); MEAN CORPUSCULAR HEMOGLOBIN 29.7 pg (27.0-33.0); MEAN CORPUSCULAR HGB CONC 32.5 g/dl (32.0-36.5); MEAN CORPUSCULAR VOLUME 91.4 fl (80.0-96.0); MONO # 0.8 10^3/uL (0.0-0.8); MONO % 8.5 % (2.0-8.0); NEUTROPHILS # 7.4 10^3/uL (1.5-8.5); NEUTROPHILS % 80.1 % (36.0-66.0); PLATELET COUNT, AUTOMATED 276 10^3/uL (150-450); RED BLOOD COUNT 4.64 10^6/uL (4.00-5.40); WHITE BLOOD COUNT 9.2 10^3/uL (4.0-10.0)
[2024-05-27 18:56] LABS: ALBUMIN 3.4 G/DL (3.2-5.2); ALKALINE PHOSPHATASE 79 U/L (46-116); ALT/SGPT 11 U/L (7.0-40); AST/SGOT 16 U/L (<34); BILIRUBIN,DIRECT 0.2 MG/DL (<0.4); BILIRUBIN,TOTAL 0.6 MG/DL (0.3-1.2); BLOOD UREA NITROGEN 12 MG/DL (9-23); CALCIUM LEVEL 9.8 MG/DL (8.3-10.6); CARBON DIOXIDE LEVEL 25 MMOL/L (20-31); CHLORIDE LEVEL 103 MMOL/L (98-107); CREATININE FOR GFR 0.87 MG/DL (0.55-1.30); GLOMERULAR FILTRATION RATE > 60.0 (>39); GLUCOSE, FASTING 141 MG/DL (74-106); POTASSIUM SERUM 4.3 MMOL/L (3.5-5.1); SODIUM LEVEL 137 MMOL/L (136-145); TOTAL PROTEIN 6.5 G/DL (5.7-8.2)
[2024-05-27] MEDS ORDERED: MIRT-84 PO (20:37)
[2024-05-27] MEDS ORDERED: MAALOX 30 ML SUSP *UDC PO PRN (21:25)
[2024-05-27] MEDS ORDERED: MOM 30ML SUSPENSION UDC PO PRN (21:25)
[2024-05-27] MEDS ORDERED: SERT-141 PO (22:12)
[2024-05-27] MEDS ORDERED: MIRT-88 PO (22:12)
[2024-05-27] MEDS ORDERED: HOME MED LIST COMPLETE! XX SCH (22:15)
[2024-05-28] MEDS: SERTRALINE HCL 50 MG TAB PO SCH (01:21)
[2024-05-28] MEDS: MIRTAZAPINE 15 MG TAB PO SCH (01:21)
[2024-05-28] MEDS: SIMVASTATIN 20 MG TAB PO SCH (01:21)
[2024-05-28] MEDS: PROPRANOLOL 60MG LA CAP PO SCH (01:21)
[2024-05-28 06:19] LABS: HEMATOCRIT 39.7 % (36.0-47.0); HEMOGLOBIN 12.6 g/dl (12.0-15.5); MEAN CORPUSCULAR HEMOGLOBIN 29.5 pg (27.0-33.0); MEAN CORPUSCULAR HGB CONC 31.7 g/dl (32.0-36.5); PLATELET COUNT, AUTOMATED 238 10^3/uL (150-450); RED BLOOD COUNT 4.27 10^6/uL (4.00-5.40); WHITE BLOOD COUNT 8.2 10^3/uL (4.0-10.0)
[2024-05-28 06:32] LABS: INR 1.17; PARTIAL THROMBOPLASTIN TIME 24.7 SECONDS (24.8-34.2); PROTHROMBIN TIME 14.6 SECONDS (12.5-14.5)
[2024-05-28 06:42] LABS: BLOOD UREA NITROGEN 13 MG/DL (9-23); CARBON DIOXIDE LEVEL 30 MMOL/L (20-31); CHLORIDE LEVEL 105 MMOL/L (98-107); CREATININE FOR GFR 0.97 MG/DL (0.55-1.30); GLOMERULAR FILTRATION RATE > 60.0 (>39); GLUCOSE, FASTING 128 MG/DL (74-106); POTASSIUM SERUM 4.4 MMOL/L (3.5-5.1); SODIUM LEVEL 140 MMOL/L (136-145)
[2024-05-28 06:54] LABS: PROCALCITONIN 0.06 ng/ml
[2024-05-28] MEDS: TIOTROPIUM INHALER/CAPSULE (SPIRIVA) INH SCH (07:53)
[2024-05-28] MEDS: DOCUSATE SODIUM 100MG CAPSULE PO SCH (08:54)
[2024-05-28] MEDS: PANTOPRAZOLE 40MG TAB (PROTONIX) PO SCH (08:54)
[2024-05-28] MEDS ORDERED: ALBUTEROL SULFATE 2.5MG/0.5ML INH NEB SOLN NEB PRN (08:55)
[2024-05-28] MEDS ORDERED: ISOVUE-370 76% 100ML VIAL As Ordered ONE (14:01)
[2024-05-28 15:50] VITALS: BP 160/94; TEMP 97.3; O2SAT 94
[2024-05-28] MEDS ORDERED: ONDANSETRON 4MG ORAL DISINTEGRATING TAB SL PRN (17:35)
[2024-05-28] MEDS ORDERED: oxyCODONE 5MG TAB PO PRN (17:35)
[2024-05-28 18:09] VITALS: O2SAT 94
[2024-05-28] MEDS: SENNA 8.6 MG TAB (SENOKOT) PO SCH (20:35)
[2024-05-28 20:36] VITALS: BP 154/90; TEMP 98.1; O2SAT 93
[2024-05-29 03:37] VITALS: BP 159/86; TEMP 97.5; O2SAT 93
[2024-05-29 05:42] LABS: BASO % 0.2 % (0.0-1.0); EOS # 0.1 10^3/uL (0.0-0.5); EOS % 2.2 % (0.0-3.0); HEMATOCRIT 39.8 % (36.0-47.0); HEMOGLOBIN 12.5 g/dl (12.0-15.5); LYMPH # 0.7 10^3/uL (1.5-5.0); LYMPH % 11.5 % (24.0-44.0); MEAN CORPUSCULAR HGB CONC 31.4 g/dl (32.0-36.5); MEAN CORPUSCULAR VOLUME 92.3 fl (80.0-96.0); MONO # 0.5 10^3/uL (0.0-0.8); MONO % 7.5 % (2.0-8.0); NEUTROPHILS # 5.1 10^3/uL (1.5-8.5); NEUTROPHILS % 78.4 % (36.0-66.0); PLATELET COUNT, AUTOMATED 246 10^3/uL (150-450); RED BLOOD COUNT 4.31 10^6/uL (4.00-5.40); WHITE BLOOD COUNT 6.4 10^3/uL (4.0-10.0)
[2024-05-29 05:49] LABS: BLOOD UREA NITROGEN 14 MG/DL (9-23); CALCIUM LEVEL 9.4 MG/DL (8.3-10.6); CARBON DIOXIDE LEVEL 28 MMOL/L (20-31); CHLORIDE LEVEL 104 MMOL/L (98-107); CREATININE FOR GFR 0.92 MG/DL (0.55-1.30); GLOMERULAR FILTRATION RATE > 60.0 (>39); GLUCOSE, FASTING 124 MG/DL (74-106); POTASSIUM SERUM 3.9 MMOL/L (3.5-5.1); SODIUM LEVEL 140 MMOL/L (136-145)
[2024-05-29] MEDS: LORazepam 2 MG/ML 1ML VIAL IV PRN (10:40)
[2024-05-29] MEDS ORDERED: ETOMIDATE INJ 20MG/10ML VIAL As Ordered ONE (12:31)
[2024-05-29] MEDS ORDERED: fentaNYL 100 MCG/2 ML INJECTION As Ordered ONE (12:31)
[2024-05-29] MEDS ORDERED: dexmedeTOMIDine (4MCG/ML)200MCG/50ML BTL (PRECEDEX) As Ordered ONE (12:31)
[2024-05-29] MEDS ORDERED: ONDANSETRON 4MG 2ML VIAL As Ordered ONE (12:31)
[2024-05-29] MEDS ORDERED: SUGAMMADEX SODIUM 500 MG/5 ML VIAL (BRIDION) As Ordered ONE (12:31)
[2024-05-29] MEDS ORDERED: LIDOCAINE 2% 100MG/5ML SDV (FOR ANES.) As Ordered ONE (12:31)
[2024-05-29] MEDS ORDERED: MIDAZOLAM INJ 2MG/2ML VIAL As Ordered ONE (12:31)
[2024-05-29] MEDS ORDERED: propofoL 200 MG/20 ML VIAL As Ordered ONE (12:31)
[2024-05-29] MEDS ORDERED: ROCURONIUM BROMIDE 50MG/5ML VIAL As Ordered ONE (12:31)
[2024-05-29] MEDS ORDERED: METOCLOPRAMIDE INJ 10MG/2ML VIAL As Ordered ONE (12:31)
[2024-05-29] MEDS ORDERED: ACETAMINOPHEN 1000MG 100ML IV BAG As Ordered ONE (12:32)
[2024-05-29] MEDS ORDERED: PHENYLephrine 500MCG 5ML (100MCG/ML) SYRINGE As Ordered ONE (12:32)
[2024-05-29] MEDS ORDERED: ALBUTEROL 6.7GM INHALER **FOR ANES. CART/OMNICELL ONLY As Ordered ONE (12:33)
[2024-05-29] MEDS ORDERED: ePHEDrine SULFATE 25 MG/5 ML(5MG/ML) SYRINGE As Ordered ONE (12:38)
[2024-05-29] MEDS ORDERED: ALBUTEROL SULFATE 2.5MG/0.5ML INH NEB SOLN As Ordered ONE (13:01)
[2024-05-29] MEDS: THROMBIN 5,000 UNITS VIAL As Ordered ONE (13:30)
[2024-05-29] MEDS: EPINEPHrine 1MG/10ML SYRINGE 1.5IN As Ordered ONE (13:30)
[2024-05-29] MEDS: CETACAINE SPRAY 5GM As Ordered ONE (13:30)
[2024-05-29] MEDS ORDERED: CEPACOL LOZENGE PO PRN (13:50)
[2024-05-29 14:08] VITALS: O2SAT 94
[2024-05-29] MEDS: IPRATROPIUM 0.5MG/ALBUTEROL 2.5MG INH SOL UD 3ML (DUONEB) NEB ONE (16:00)
[2024-05-29] MEDS: ALBUTEROL SULFATE 2.5MG/0.5ML INH NEB SOLN NEB SCH (16:28)
[2024-05-29 20:59] VITALS: BP 125/64; TEMP 97; O2SAT 93
[2024-05-29 23:00] VITALS: O2SAT 96
[2024-05-30] VITALS: O2SAT 91
[2024-05-30 03:42] VITALS: BP 149/75; TEMP 97.5; O2SAT 96
[2024-05-30 05:30] LABS: EOS % 0.3 % (0.0-3.0); HEMOGLOBIN 11.6 g/dl (12.0-15.5); LYMPH # 0.6 10^3/uL (1.5-5.0); LYMPH % 8.9 % (24.0-44.0); MEAN CORPUSCULAR HEMOGLOBIN 29.3 pg (27.0-33.0); MEAN CORPUSCULAR HGB CONC 31.4 g/dl (32.0-36.5); MEAN CORPUSCULAR VOLUME 93.4 fl (80.0-96.0); MONO # 0.5 10^3/uL (0.0-0.8); MONO % 7.5 % (2.0-8.0); PLATELET COUNT, AUTOMATED 232 10^3/uL (150-450); RED BLOOD COUNT 3.96 10^6/uL (4.00-5.40); WHITE BLOOD COUNT 7.2 10^3/uL (4.0-10.0)
[2024-05-30 06:01] LABS: BLOOD UREA NITROGEN 17 MG/DL (9-23); CALCIUM LEVEL 9.4 MG/DL (8.3-10.6); CARBON DIOXIDE LEVEL 26 MMOL/L (20-31); CHLORIDE LEVEL 105 MMOL/L (98-107); CREATININE FOR GFR 0.83 MG/DL (0.55-1.30); GLOMERULAR FILTRATION RATE > 60.0 (>39); GLUCOSE, FASTING 113 MG/DL (74-106); POTASSIUM SERUM 4.7 MMOL/L (3.5-5.1); SODIUM LEVEL 140 MMOL/L (136-145)
[2024-05-30 12:00] VITALS: BP 152/79; TEMP 98.1; O2SAT 97
[2024-05-30 19:53] VITALS: BP 108/65; TEMP 98.6; O2SAT 96
[2024-05-30 21:15] VITALS: O2SAT 95
[2024-05-31] VITALS (9 sets, daily range): BP systolic 125–174; BP diastolic 69–99; TEMP 97.5–98.6; O2SAT 83–97
[2024-05-31 06:31] LABS: BASO % 0.3 % (0.0-1.0); EOS # 0.2 10^3/uL (0.0-0.5); HEMATOCRIT 35.4 % (36.0-47.0); HEMOGLOBIN 10.9 g/dl (12.0-15.5); LYMPH # 0.6 10^3/uL (1.5-5.0); LYMPH % 7.6 % (24.0-44.0); MEAN CORPUSCULAR HEMOGLOBIN 28.9 pg (27.0-33.0); MEAN CORPUSCULAR HGB CONC 30.8 g/dl (32.0-36.5); MEAN CORPUSCULAR VOLUME 93.9 fl (80.0-96.0); MONO # 0.6 10^3/uL (0.0-0.8); MONO % 8.1 % (2.0-8.0); NEUTROPHILS # 6.5 10^3/uL (1.5-8.5); NEUTROPHILS % 81.6 % (36.0-66.0); PLATELET COUNT, AUTOMATED 199 10^3/uL (150-450); RED BLOOD COUNT 3.77 10^6/uL (4.00-5.40); WHITE BLOOD COUNT 7.9 10^3/uL (4.0-10.0)
[2024-05-31 07:04] LABS: BLOOD UREA NITROGEN 18 MG/DL (9-23); CALCIUM LEVEL 8.9 MG/DL (8.3-10.6); CARBON DIOXIDE LEVEL 30 MMOL/L (20-31); CHLORIDE LEVEL 106 MMOL/L (98-107); CREATININE FOR GFR 0.92 MG/DL (0.55-1.30); GLOMERULAR FILTRATION RATE > 60.0 (>39); GLUCOSE, FASTING 137 MG/DL (74-106); POTASSIUM SERUM 4.4 MMOL/L (3.5-5.1); SODIUM LEVEL 140 MMOL/L (136-145)
[2024-05-31] MEDS: ACETAMINOPHEN 325 MG TAB PO PRN (18:06)
[2024-06-01 04:00] VITALS: BP 121/51; TEMP 97.7; O2SAT 97
[2024-06-01 06:27] LABS: BASO % 0.4 % (0.0-1.0); EOS # 0.1 10^3/uL (0.0-0.5); EOS % 2.7 % (0.0-3.0); HEMATOCRIT 34.6 % (36.0-47.0); HEMOGLOBIN 10.7 g/dl (12.0-15.5); LYMPH # 0.7 10^3/uL (1.5-5.0); MEAN CORPUSCULAR HEMOGLOBIN 29.2 pg (27.0-33.0); MEAN CORPUSCULAR HGB CONC 30.9 g/dl (32.0-36.5); MEAN CORPUSCULAR VOLUME 94.3 fl (80.0-96.0); MONO # 0.5 10^3/uL (0.0-0.8); MONO % 10.6 % (2.0-8.0); NEUTROPHILS # 3.4 10^3/uL (1.5-8.5); NEUTROPHILS % 71.1 % (36.0-66.0); PLATELET COUNT, AUTOMATED 193 10^3/uL (150-450); RED BLOOD COUNT 3.67 10^6/uL (4.00-5.40); WHITE BLOOD COUNT 4.8 10^3/uL (4.0-10.0)
[2024-06-01 06:45] LABS: BLOOD UREA NITROGEN 10 MG/DL (9-23); CALCIUM LEVEL 9.3 MG/DL (8.3-10.6); CARBON DIOXIDE LEVEL 32 MMOL/L (20-31); CHLORIDE LEVEL 106 MMOL/L (98-107); CREATININE FOR GFR 0.81 MG/DL (0.55-1.30); GLOMERULAR FILTRATION RATE > 60.0 (>39); GLUCOSE, FASTING 114 MG/DL (74-106); POTASSIUM SERUM 4.7 MMOL/L (3.5-5.1); SODIUM LEVEL 142 MMOL/L (136-145)
[2024-06-01 09:00] VITALS: O2SAT 95
== END 2024-06-01 14:53 | disposition home or self-care (01) | DRG 181 ==
LOC: M ED 17:09 → M ED INP 21:25 → M MSPAV 05-28 16:00
PROVIDERS: ADMIT Internal Medicine; ATTEND Internal Medicine Nephrology
PROC: 0BB78ZX Excision of Left Main Bronchus, Via Natural or Artificial Opening Endoscopic, Diagnostic (ICD-10-PCS; 2024-05-29)
PROC: 07978ZX Drainage of Thorax Lymphatic, Via Natural or Artificial Opening Endoscopic Approach, Diagnostic (ICD-10-PCS; 2024-05-29)
PROC: 0BB38ZX Excision of Right Main Bronchus, Via Natural or Artificial Opening Endoscopic, Diagnostic (ICD-10-PCS; principal; 2024-05-29 11:00)
DX: C34.12 Malignant neoplasm of upper lobe, left bronchus or lung (principal); C78.1 Secondary malignant neoplasm of mediastinum; I10 Essential (primary) hypertension; I25.10 Atherosclerotic heart disease of native coronary artery without angina pectoris; F32.A Depression, unspecified; E78.5 Hyperlipidemia, unspecified; M79.7 Fibromyalgia; J44.9 Chronic obstructive pulmonary disease, unspecified; I25.2 Old myocardial infarction; F41.9 Anxiety disorder, unspecified; Z92.3 Personal history of irradiation; Z92.21 Personal history of antineoplastic chemotherapy; Z87.891 Personal history of nicotine dependence; Z79.82 Long term (current) use of aspirin; Z79.899 Other long term (current) drug therapy; Z88.8 Allergy status to other drugs, medicaments and biological substances; Z86.16 Personal history of COVID-19

== ENCOUNTER 2024-06-03 10:40 | Inpatient (IN) | payer MEDICARE ==
[~2024-06-03] VITALS: Ht 170.2 cm; Wt 100.5 kg
[~2024-06-03 10:40] MED LIST changes: +MIRT-84 PO; +MIRT-88 PO; +PROP60TA14 PO; +SERT-141 PO; +VENTAER INH
[2024-06-03 13:12] LABS: BASO % 0.3 % (0.0-1.0); EOS # 0.1 10^3/uL (0.0-0.5); EOS % 0.8 % (0.0-3.0); HEMATOCRIT 40.4 % (36.0-47.0); HEMOGLOBIN 12.9 g/dl (12.0-15.5); LYMPH # 0.5 10^3/uL (1.5-5.0); LYMPH % 7.1 % (24.0-44.0); MEAN CORPUSCULAR HEMOGLOBIN 29.3 pg (27.0-33.0); MEAN CORPUSCULAR HGB CONC 31.9 g/dl (32.0-36.5); MEAN CORPUSCULAR VOLUME 91.6 fl (80.0-96.0); MONO # 0.6 10^3/uL (0.0-0.8); MONO % 7.4 % (2.0-8.0); NEUTROPHILS # 6.2 10^3/uL (1.5-8.5); NEUTROPHILS % 84.1 % (36.0-66.0); PLATELET COUNT, AUTOMATED 231 10^3/uL (150-450); RED BLOOD COUNT 4.41 10^6/uL (4.00-5.40); WHITE BLOOD COUNT 7.4 10^3/uL (4.0-10.0)
[2024-06-03] MEDS: IPRATROPIUM 0.5MG/ALBUTEROL 2.5MG INH SOL UD 3ML (DUONEB) NEB ONE (13:13)
[2024-06-03] MEDS: dexAMETHasone 20MG/5ML VIAL IV ONE (13:15)
[2024-06-03] MEDS ORDERED: ISOVUE-370 76% 100ML VIAL As Ordered ONE (14:01)
[2024-06-03] MEDS: LORazepam 2 MG/ML 1ML VIAL IV STA (14:17)
[2024-06-03] MEDS ORDERED: ACETAMINOPHEN 325 MG TAB PO PRN (16:45)
[2024-06-03] MEDS ORDERED: MOM 30ML SUSPENSION UDC PO PRN (16:45)
[2024-06-03] MEDS ORDERED: NITR100C2 PO (16:56)
[2024-06-03] MEDS ORDERED: HOME MED LIST COMPLETE! XX SCH (17:00)
[2024-06-03] MEDS: IPRATROPIUM 0.5MG/ALBUTEROL 2.5MG INH SOL UD 3ML (DUONEB) NEB SCH (22:01)
[2024-06-03] MEDS: HEPARIN SOD (PORCINE) 5000UNITS/ML 1ML VIAL/SYRINGE SQ SCH (23:06)
[2024-06-03] MEDS: DOCUSATE SODIUM 100MG CAPSULE PO SCH (23:06)
[2024-06-04] VITALS (17 sets, daily range): BP systolic 131–227; BP diastolic 63–102; TEMP 97–98.4; O2SAT 92–98
[2024-06-04] MEDS ORDERED: ALBUTEROL 90 MCG/ACT 8GM HFA INHALER INH PRN (06:50)
[2024-06-04] MEDS: TIOTROPIUM INHALER/CAPSULE (SPIRIVA) INH SCH (07:16)
[2024-06-04] MEDS ORDERED: LORazepam 0.5 MG TAB PO ONE (08:30)
[2024-06-04] MEDS: ASPIRIN 81MG ENTERIC TABLET PO SCH (08:35)
[2024-06-04] MEDS: PANTOPRAZOLE 40MG TAB (PROTONIX) PO SCH (08:35)
[2024-06-04] MEDS: PROPRANOLOL 60MG LA CAP PO SCH (08:35)
[2024-06-04 08:47] LABS: HEMATOCRIT 36.5 % (36.0-47.0); HEMOGLOBIN 11.7 g/dl (12.0-15.5); MEAN CORPUSCULAR HEMOGLOBIN 29.2 pg (27.0-33.0); MEAN CORPUSCULAR HGB CONC 32.1 g/dl (32.0-36.5); PLATELET COUNT, AUTOMATED 224 10^3/uL (150-450); RED BLOOD COUNT 4.01 10^6/uL (4.00-5.40); WHITE BLOOD COUNT 5.9 10^3/uL (4.0-10.0)
[2024-06-04 09:23] LABS: BLOOD UREA NITROGEN 16 MG/DL (9-23); CALCIUM LEVEL 9.7 MG/DL (8.3-10.6); CARBON DIOXIDE LEVEL 30 MMOL/L (20-31); CHLORIDE LEVEL 104 MMOL/L (98-107); CREATININE FOR GFR 0.73 MG/DL (0.55-1.30); GLOMERULAR FILTRATION RATE > 60.0 (>39); GLUCOSE, FASTING 135 MG/DL (74-106); POTASSIUM SERUM 4.1 MMOL/L (3.5-5.1); SODIUM LEVEL 139 MMOL/L (136-145)
[2024-06-04] MEDS: CAPTOpril 6.25 MG PER 1/2 TABLET PO SCH (09:44)
[2024-06-04] MEDS: LORazepam 2 MG/ML 1ML VIAL IV PRN (09:45)
[2024-06-04] MEDS: MIRTAZAPINE 15 MG TAB PO SCH (20:25)
[2024-06-04] MEDS: SIMVASTATIN 20 MG TAB PO SCH (20:25)
[2024-06-04] MEDS: SERTRALINE HCL 50 MG TAB PO SCH (20:26)
[2024-06-05] VITALS (9 sets, daily range): BP systolic 116–144; BP diastolic 65–72; TEMP 97.1–97.7; O2SAT 89–97
[2024-06-05 05:12] LABS: HEMATOCRIT 36.8 % (36.0-47.0); HEMOGLOBIN 11.8 g/dl (12.0-15.5); MEAN CORPUSCULAR HEMOGLOBIN 29.4 pg (27.0-33.0); MEAN CORPUSCULAR HGB CONC 32.1 g/dl (32.0-36.5); MEAN CORPUSCULAR VOLUME 91.5 fl (80.0-96.0); PLATELET COUNT, AUTOMATED 244 10^3/uL (150-450); RED BLOOD COUNT 4.02 10^6/uL (4.00-5.40); WHITE BLOOD COUNT 6.2 10^3/uL (4.0-10.0)
[2024-06-05 05:39] LABS: BLOOD UREA NITROGEN 18 MG/DL (9-23); CALCIUM LEVEL 9.7 MG/DL (8.3-10.6); CARBON DIOXIDE LEVEL 30 MMOL/L (20-31); CHLORIDE LEVEL 105 MMOL/L (98-107); CREATININE FOR GFR 0.89 MG/DL (0.55-1.30); GLOMERULAR FILTRATION RATE > 60.0 (>39); GLUCOSE, FASTING 131 MG/DL (74-106); POTASSIUM SERUM 3.9 MMOL/L (3.5-5.1); SODIUM LEVEL 140 MMOL/L (136-145)
[2024-06-06] VITALS (11 sets, daily range): BP systolic 111–119; BP diastolic 49–71; TEMP 97.3–97.7; O2SAT 84–95
[2024-06-06] MEDS: IPRATROPIUM 0.5MG/ALBUTEROL 2.5MG INH SOL UD 3ML (DUONEB) NEB SCH (07:58)
[2024-06-06] MEDS: lisinopriL 40MG TAB PO SCH (08:47)
[2024-06-06] MEDS: predniSONE 20 MG TAB PO SCH (12:17)
[2024-06-06] MEDS: AZITHROMYCIN 250MG TABLET PO SCH (12:18)
[2024-06-07 04:00] VITALS: BP 131/72; TEMP 97.9; O2SAT 95
[2024-06-07] MEDS: methylPREDNISolone 125MG 2ML VIAL IV SCH (09:44)
[2024-06-07 12:00] VITALS: BP 135/90; TEMP 97.5; O2SAT 97
[2024-06-07 21:00] VITALS: BP 124/64; TEMP 97.7; O2SAT 94
[2024-06-07 23:20] VITALS: O2SAT 95
[2024-06-08 04:31] VITALS: BP 137/71; TEMP 98.1; O2SAT 96
[2024-06-08 06:28] LABS: HEMATOCRIT 35.9 % (36.0-47.0); HEMOGLOBIN 11.4 g/dl (12.0-15.5); LYMPH # 0.2 10^3/uL (1.5-5.0); LYMPH % 3.6 % (24.0-44.0); MEAN CORPUSCULAR HEMOGLOBIN 29.5 pg (27.0-33.0); MEAN CORPUSCULAR HGB CONC 31.8 g/dl (32.0-36.5); MONO # 0.1 10^3/uL (0.0-0.8); MONO % 1.8 % (2.0-8.0); NEUTROPHILS # 5.8 10^3/uL (1.5-8.5); NEUTROPHILS % 94.3 % (36.0-66.0); PLATELET COUNT, AUTOMATED 238 10^3/uL (150-450); RED BLOOD COUNT 3.86 10^6/uL (4.00-5.40); WHITE BLOOD COUNT 6.2 10^3/uL (4.0-10.0)
[2024-06-08 06:59] LABS: BLOOD UREA NITROGEN 18 MG/DL (9-23); CALCIUM LEVEL 9.5 MG/DL (8.3-10.6); CARBON DIOXIDE LEVEL 31 MMOL/L (20-31); CHLORIDE LEVEL 106 MMOL/L (98-107); CREATININE FOR GFR 0.76 MG/DL (0.55-1.30); GLOMERULAR FILTRATION RATE > 60.0 (>39); GLUCOSE, FASTING 177 MG/DL (74-106); POTASSIUM SERUM 4.7 MMOL/L (3.5-5.1); SODIUM LEVEL 140 MMOL/L (136-145)
[2024-06-08 08:00] VITALS: BP 143/73; TEMP 97.7; O2SAT 95
[2024-06-08 12:00] VITALS: BP 143/73; TEMP 97.7; O2SAT 96
[2024-06-08 16:18] VITALS: O2SAT 96
[2024-06-08 20:00] VITALS: BP 130/65; TEMP 97.3; O2SAT 94
[2024-06-08] MEDS: methylPREDNISolone 125MG 2ML VIAL IV SCH (20:16)
[2024-06-09 04:00] VITALS: BP 132/64; TEMP 97.7; O2SAT 95
[2024-06-09] MEDS: predniSONE 20 MG TAB PO SCH (08:30)
[2024-06-09] MEDS ORDERED: MIRALAX *UNIT DOSE* 17GM PACKET PO PRN (09:20)
[2024-06-09 11:50] VITALS: BP 138/83; TEMP 97.7; O2SAT 96
[2024-06-09] MEDS: MIRALAX *UNIT DOSE* 17GM PACKET PO SCH (15:17)
[2024-06-09 20:30] VITALS: BP 147/78; TEMP 97.7; O2SAT 95
[2024-06-09] MEDS: MOM 30ML SUSPENSION UDC PO SCH (20:50)
[2024-06-09] MEDS: DOCUSATE SOD LIQ 100MG/10ML UDC PO SCH (20:50)
[2024-06-09 23:49] VITALS: O2SAT 95
[2024-06-10 03:01] VITALS: BP 150/76; TEMP 97.7; O2SAT 94
[2024-06-10 08:52] VITALS: O2SAT 98
[2024-06-10] MEDS ORDERED: MIRA33506 PO (10:42)
[2024-06-10] MEDS ORDERED: COLA100C5 PO (10:42)
[2024-06-10] MEDS ORDERED: LISI40TA4 PO (10:42)
[2024-06-10] MEDS ORDERED: ALBU8.5H INH (10:43)
[2024-06-10] MEDS ORDERED: PRED10TA2 PO (10:43)
[2024-06-10 10:45] VITALS: BP 147/76; TEMP 97.3; O2SAT 97
[2024-06-10 10:49] VITALS: BP 147/76
[2024-06-10] MEDS: ASPIRIN 81MG CHEW TABLET PO SCH (10:49)
[2024-06-10 12:00] VITALS: BP 136/70; TEMP 97.2; O2SAT 97
== END 2024-06-10 16:19 | disposition home health service (06) | DRG 180 ==
LOC: M ED 10:40 → M ED INP 16:44 → M ICU 06-04 05:48 → M MSPAV 06-05 15:47
PROVIDERS: ADMIT Student in an Organized Health Care Education/Training Program; ATTEND General Practice
DX: C34.02 Malignant neoplasm of left main bronchus (principal); J96.21 Acute and chronic respiratory failure with hypoxia; J44.1 Chronic obstructive pulmonary disease with (acute) exacerbation; I10 Essential (primary) hypertension; I25.10 Atherosclerotic heart disease of native coronary artery without angina pectoris; F32.A Depression, unspecified; F41.9 Anxiety disorder, unspecified; E78.5 Hyperlipidemia, unspecified; E05.00 Thyrotoxicosis with diffuse goiter without thyrotoxic crisis or storm; M79.7 Fibromyalgia; K21.9 Gastro-esophageal reflux disease without esophagitis; Z79.82 Long term (current) use of aspirin; Z79.899 Other long term (current) drug therapy; Z88.8 Allergy status to other drugs, medicaments and biological substances; Z87.891 Personal history of nicotine dependence

== ENCOUNTER → 2024-06-18 | Outpatient (RCR) | payer MEDICARE ==
[~2024-06-18] MED LIST changes: +ALBU8.5H INH; +CETACAINE SPRAY 5GM As Ordered ONE; +COLA100C5 PO; +EPINEPHrine 1MG/10ML SYRINGE 1.5IN As Ordered ONE; +ISOVUE-370 76% 100ML VIAL As Ordered ONE; +LISI40TA4 PO; +LORA1TAB23; +MIRA33506 PO; +NITR100C2 PO; +PRED10TA2 PO; +THROMBIN 20,000 UNITS KIT As Ordered ONE; +THROMBIN 5,000 UNITS VIAL As Ordered ONE
== END ==
LOC: M ONCR 05-29 14:20
PROVIDERS: ATTEND General Practice
DX: Z51.0 Encounter for antineoplastic radiation therapy (principal); C34.12 Malignant neoplasm of upper lobe, left bronchus or lung
CPT/HCPCS: 77336; 77386; Q9967

== ENCOUNTER 2024-06-26 14:01 | Outpatient (RCR) | payer MEDICARE ==
[~2024-06-26 14:01] MED LIST changes: -CETACAINE SPRAY 5GM As Ordered ONE; -EPINEPHrine 1MG/10ML SYRINGE 1.5IN As Ordered ONE; -ISOVUE-370 76% 100ML VIAL As Ordered ONE; -LORA1TAB23; +METH-1386 PO; +METH-1387 PO; -METH10TA PO; -METH25TAB PO; -THROMBIN 20,000 UNITS KIT As Ordered ONE; -THROMBIN 5,000 UNITS VIAL As Ordered ONE
[2024-06-29] MEDS ORDERED: LORA1TAB23 PO (15:26)
[2024-06-29] MEDS ORDERED: CLON1TAB8 PO (15:26)
[2024-07-06] MEDS ORDERED: PENT400T47 PO (14:25)
[2024-07-06] MEDS ORDERED: VITA-297 PO (14:27)
== END 2024-07-18 ==
LOC: M ONCR 14:01
PROVIDERS: ATTEND General Practice
DX: Z51.0 Encounter for antineoplastic radiation therapy (principal); C34.12 Malignant neoplasm of upper lobe, left bronchus or lung

== ENCOUNTER → 2024-07-07 | Outpatient (CLI) | payer MEDICARE ==
[~2024-07-07] MED LIST changes: +CLON1TAB8 PO; -METH-1386 PO; -METH-1387 PO; +METH10TA PO; +METH25TAB PO; +PENT400T47 PO; +VITA-297 PO
== END ==
LOC: M PLARAD 08:21
PROVIDERS: ATTEND Specialist
DX: C34.12 Malignant neoplasm of upper lobe, left bronchus or lung (principal)
CPT/HCPCS: 78815; A9552

== ENCOUNTER → 2024-07-08 | Outpatient (CLI) | payer MEDICARE ==
[~2024-07-08] VITALS: Ht 170.2 cm; Wt 98.0 kg
[~2024-07-08] MED LIST changes: +LIDOCAINE 1% MDV 20ML VIAL As Ordered ONE; +LIDOCAINE W/EPINEPHRINE 1% 20ML VIAL As Ordered ONE; +MIDAZOLAM INJ 2MG/2ML VIAL As Ordered ONE; +ceFAZolin 2 GM/D5W 50 ML IV BAG As Ordered ONE; +fentaNYL 100 MCG/2 ML INJECTION As Ordered ONE
[2024-07-08 08:10] VITALS: TEMP 97.5
[2024-07-08] MEDS: ceFAZolin SOD 2 GM in IV 1 EA IV ONE (09:23)
[2024-07-08 10:45] VITALS: BP 162/75; O2SAT 100
== END ==
LOC: M IRPRO 07:43
PROVIDERS: ATTEND Specialist
DX: C34.90 Malignant neoplasm of unspecified part of unspecified bronchus or lung (principal)
CPT/HCPCS: 36561; 99152; 99153; J0690; J1642; J2250; J3010

== ENCOUNTER 2024-07-15 14:03 | Outpatient (RCR) | payer MEDICARE ==
[~2024-07-15 14:03] MED LIST changes: -LIDOCAINE 1% MDV 20ML VIAL As Ordered ONE; -LIDOCAINE W/EPINEPHRINE 1% 20ML VIAL As Ordered ONE; +METH-1386 PO; +METH-1387 PO; -METH10TA PO; -METH25TAB PO; -MIDAZOLAM INJ 2MG/2ML VIAL As Ordered ONE; -ceFAZolin 2 GM/D5W 50 ML IV BAG As Ordered ONE; -fentaNYL 100 MCG/2 ML INJECTION As Ordered ONE
[2024-09-12] MEDS ORDERED: LISI20TA33 PO (23:32)
[2024-09-12] MEDS ORDERED: DOCU100C16 PO (23:32)
[2024-09-12] MEDS ORDERED: BACI500O8 TOP (23:36)
[2024-09-12] MEDS ORDERED: AZIT-12 PO (23:36)
[2024-09-12] MEDS ORDERED: CEFP200T PO (23:39)
[2024-09-12] MEDS ORDERED: MAGN400T2 PO ×2 (23:56)
[2024-09-24] MEDS ORDERED: MECL-86 PO (14:49)
[2024-09-24] MEDS ORDERED: INDE60CA4 PO (14:49)
[2024-09-24] MEDS ORDERED: ACET32TAB PO (14:49)
[2024-09-24] MEDS ORDERED: COLA100C5 PO (14:49)
[2024-09-24] MEDS ORDERED: POTA-136 PO (14:49)
[2024-09-24] MEDS ORDERED: FURO20TA2 PO (14:49)
[2024-09-24] MEDS ORDERED: OXYC-517 PO (14:55)
[2024-09-26] MEDS ORDERED: POTA-150 PO (18:42)
[2024-09-26] MEDS ORDERED: MECL-209 PO (18:42)
[2024-09-26] MEDS ORDERED: ACET1TAB55 PO (18:42)
[2024-09-26] MEDS ORDERED: PROP60CA PO (18:42)
[2024-10-03] MEDS ORDERED: PERCOCET PO (11:36)
[2024-10-03] MEDS ORDERED: PANT40TA29 PO (11:36)
[2024-10-03] MEDS ORDERED: PERC5TAB12 PO (14:44)
== END 2024-07-18 ==
LOC: M ONCR 14:03
PROVIDERS: ATTEND General Practice
DX: Z51.0 Encounter for antineoplastic radiation therapy (principal); C34.12 Malignant neoplasm of upper lobe, left bronchus or lung

== ENCOUNTER 2024-07-20 13:48 | Outpatient (RCR) | payer MEDICARE | END 2024-08-18 | LOC: M ONCR 13:48 | PROVIDERS: ATTEND General Practice | DX: Z51.0 Encounter for antineoplastic radiation therapy (principal); C34.12 Malignant neoplasm of upper lobe, left bronchus or lung ==